=== PATIENT | male | born 1950 | race Two or more races ===

== ENCOUNTER 2021-04-02 09:34 | Emergency (ER) | payer OTHER ==
[~2021-04-02] VITALS: Ht 160 cm; Wt 61.0 kg
--- NOTE | 2021-04-02 10:47 | RAD ---
XR CHEST 1V History: Cough, malaise, Covid person under investigation. Comparison: None. Technique: Portable AP radiograph of the chest. Findings: The lungs are adequately inflated. There are patchy bilateral airspace opacities. No pleural effusion or pneumothorax. Cardiac mediastinal silhouette and pulmonary vasculature are within normal limits. Degenerative changes of the shoulders and spine. Soft tissues are unremarkable. Impression: 1. Patchy bilateral airspace opacities concerning for multifocal infection. Electronically signed by: Edmar Dukes MD (04/02/2021 10:45 AM) [facility]
[2021-04-02 11:30] VITALS: BP 124/78
[2021-04-02] MEDS ORDERED: AZIT250T PO (11:32)
--- NOTE | 2021-04-02 11:33 | PHYS DOC ---
Past Medical History Past Medical History: Diabetes-Type II Past Surgical History: Other Additional Past Surgical Histo: FOOT SX Smoking Status: Never Smoker Alcohol Use: None Drug Use: None General Adult EDM: Chief Complaint: DIARRHEA HPI: HPI: Patient is a 70 year old male presents with report of feeling ill for the past 3 days. Patient reports he has been having a nonproductive cough, nausea, and diarrhea. Denies fever or chills. Reports some generalized malaise. Patient also complains of chronic left hip pain. Patient reports anything he eats "goes right through him ". Denies known sick contacts. Denies known exposure to COVID-19. Patient also reports he has not been vaccinated for COVID-19. Review of Systems: Review of Systems: Constitutional: Denies fever or chills Eyes: Denies redness or eye pain HENT: Denies nasal congestion or sore throat Respiratory: Reports cough; denies shortness of breath Cardiovascular: Denies chest pain or palpitations GI: Denies abdominal pain; reports nausea and diarrhea : Denies dysuria or hematuria Musculoskeletal: Denies back pain or joint pain Integument: Denies rash or skin lesions Neurologic: Denies headache, focal weakness or sensory changes Complete systems were reviewed and found to be within normal limits, except as documented in this note. Heart Score: C/O Chest Pain: N/A Allergies: Allergies: Allergies Coded Allergies Type Severity Reaction Last Updated Verified No Known Drug Allergies 04/02/21 No Physical Exam: PE: Constitutional: Well developed, well nourished, no acute distress, non-toxic appearance HENT: Normocephalic, atraumatic Eyes: Conjunctiva normal, no discharge Neck: Normal range of motion, supple, no meningeal signs Lungs & Thorax: No respiratory distress, equal chest rise and fall Abdomen: Soft, no tenderness, no guarding/rebound tenderness/distention Skin: Warm, dry, no erythema, no rash Extremities: No tenderness, ROM intact, no edema Neurologic: Alert and oriented X 3, no focal deficits noted Psychologic: Affect normal, judgment normal Current Patient Data: Vital Signs: Vital Signs Date Time Temp Pulse Resp B/P (MAP) Pulse Ox O2 Delivery O2 Flow Rate FiO2 04/02/21 09:44 99.8 78 12 127/70 98 Room Air 99.8 EKG: EKG: @0949 NSR at 80bpm, NO ST elevation, QRS 86ms, QT/QTc 352/409ms, LAFB Radiology/Procedures: Radiology/Procedures: PROCEDURE: CHEST AP ONLY XR CHEST 1V History: Cough, malaise, Covid person under investigation. Comparison: None. Technique: Portable AP radiograph of the chest. Findings: The lungs are adequately inflated. There are patchy bilateral airspace opacities. No pleural effusion or pneumothorax. Cardiac mediastinal silhouette and pulmonary vasculature are within normal limits. Degenerative changes of the shoulders and spine. Soft tissues are unremarkable. Impression: 1. Patchy bilateral airspace opacities concerning for multifocal infection. Electronically signed by: Edmar Dukes MD (04/02/2021 10:45 AM) [facility] Course & Med Decision Making: Course & Med Decision Making Pertinent Labs and Imaging studies reviewed. (See chart for details) Patient presents with HPI and physical exam concerning for viral type illness. Patient reports cough, nausea, and diarrhea. Patient has not been vaccinated for COVID-19. COVID-[address] COVID-19 testing pending. Chest x-ray with some signs of atypical pneumonia. Abdomen nonperitoneal. Mucous membranes moist. Prescription for empiric antibiotic provided. Patient advised to hydrate, isolate, and for family members to quarantine. Patient stable for discharge with outpatient follow-up with PCP. Discussed findings and plan with patient, who acknowledges understanding and agreement. COVID-19 CRITERIA: The patient was evaluated during the global COVID-19 pandemic, and that diagnosis was suspected/considered upon their initial presentation. Their evaluation, treatment and testing was consistent with current guidelines for patients who present with complaints or symptoms that may be related to COVID-19. Joao Disclaimer: Joao Disclaimer: This electronic medical record was generated, in whole or in part, using a voice recognition dictation system. Departure Departure Impression: Primary Impression: Viral syndrome Additional Impressions: Diarrhea Qualified Codes: R19.7 - Diarrhea, unspecified Suspected 2019 novel coronavirus infection Pneumonia Qualified Codes: J18.9 - Pneumonia, unspecified organism Disposition: HOME / SELF CARE / HOMELESS Condition: STABLE Patient Instructions: Diarrhea, [id number], Diet for Diarrhea, Adult, Pneumonia, Adult, [id number], Viral Syndrome Additional Instructions: Increase fluid hydration. Definicin Se le realiz la prueba de deteccin del COVID-19 o se le diagnostic dicha enfermedad. Es linda infeccin ocasionada por un nuevo tipo de coronavirus. En la mayora de los casos, el COVID-19 provoca sntomas similares a los del resfriado. En algunas personas, puede ocasionar sntomas ms graves, geronimo problemas respiratorios. No existe un tratamiento para el virus COVID-19. El cuerpo elimina la infeccin con el tiempo. El cuidado personal ayuda a aliviar el malestar. Pasos que debe seguir 1. Cuidados personales Descanse cuando sea necesario. Los hbitos saludables pueden ayudarlo a sentirse mejor. Algunas medidas para lograr cambios incluyen lo siguiente: - Elija alimentos saludables, geronimo frutas y verduras. Nini abundante cantidad de agua oriana todo el da. - Duerma robert por la noche. - Si fuma, intente no hacerlo. Tryon ayudar a mejorar la respiracin. - Evite el alcohol. 2. Mantenga sanos a los dems El virus puede contagiarse a otras personas. Cada vez que estornuda o tose, se liberan gotitas. Las gotitas pueden entrar en la boca, la nariz o los ojos de las personas que se encuentran cerca de usted y ocasionar la infeccin. Para reducir las probabilidades de contagiar el virus COVID-19 a otros, tenga en cuenta lo siguiente: - Qudese en casa el tiempo que el mdico se lo indique. Es posible que deba quedarse en casa hasta que la enfermedad desaparezca. Salga nicamente para recibir atencin mdica o en chani de urgencia. - Evite las reas pblicas, los eventos o el transporte pblico. No reanude las actividades laborales o escolares hasta que el mdico lo autorice. - Llame previamente si necesita asistir a un centro mdico. Avise que es posible que haya contrado COVID-19. Tryon ayudar a que le indiquen adonde debe dirigirse. Luisa pueden pedirle que use linda mscara facial cuando vaya al consultorio. Si llama a los servicios de asistencia mdica de urgencias, avseles que es posible que haya contrado COVID-19. Mientras est en casa: - Evite el contacto directo con otras personas. Mantngase a linda distancia aproximada de 2 metros. Si es posible, pasen la mayor parte del tiempo en rodriguez separadas. - Use linda mscara facial si estar en contacto directo con otras personas, por ejemplo, si compartir linda habitacin o un vehculo. - Pida a alguien que limpie las superficies comunes de la casa. Limpie picaportes, mesadas y lavamanos con limpiadores domsticos todos los bowman. - Al toser o estornudar, cbrase con un pauelo de papel. Despus de usarlo, deschelo de inmediato. Si no tiene un pauelo de papel, tosa o estornude en el pliegue del codo. - Lvese las chapin con frecuencia. Lvese las chapin despus de estornudar o toser. Lvese con agua y jabn oriana, al menos, 20 segundos. Si no dispone de agua y jabn, use un limpiador de chapin a base de alcohol. - No cocine para otros. Evite compartir objetos personales, geronimo tenedores, cucharas o cepillos de dientes. - Mientras est enfermo, evite el contacto directo con las mascotas. No hay indicios de si el virus se transmite a las mascotas. Esta es linda medida de seguridad que debe tenerse en cuenta hasta que se sepa ms acerca de aleena virus. El aislamiento puede ser frustrante. La interaccin social puede ayudar. Mantngase en contacto con amigos y familiares por telfono u otros medios tecnolgicos. Puede interactuar con otras personas en el hogar, vannesa mantenga linda distancia dutta de aproximadamente 2 metros. Seguimiento Las pruebas para confirmar la presencia del COVID-19 pueden demorar algunos bowman. Es posible que deba seguir los pasos mencionados anteriormente hasta que estn los resultados de las pruebas. Lo llamarn del consultorio mdico para saber si fitch habido algn cambio en [place]. Tambin le avisarn cuando pueda volver a estar cerca de otras personas. Problemas a los que debe estar atento Comunquese con el mdico si no se recupera segn lo previsto o si tiene problemas geronimo los siguientes: - Dificultad para respirar - Dolor de pecho - Empeoramiento de los sntomas Si florence que tiene linda urgencia, llame a los servicios de asistencia mdica de urgencias de inmediato. As taken from [facility] Azithromycin (ZITHROMAX) 250 Mg Tablet 1 PKG PO UD for Pneumonia, #6 TAB Take 2 tablets on day 1 and then 1 tablet each day for the next 4 days as directed Prov: CHARLIE MARTINEZ DO 04/02/21 COVID-19 Assessment: COVID-19 Patient Risks: Age 65 or older: No Sign of co-morbidity: Yes Exp to person + for COVID: No Exp to PUI: No Travel from affected area: No Lower respiratory symptoms: Yes Fever: No Other: Yes PPE Use: Full PPE with N95 mask or PAPR: Yes CHARLIE MARTINEZ DO Apr 02, 2021 11:32
--- NOTE | 2021-04-02 20:18 | EKG ---
[facility] [address] [place] [address] Test Date: 2021-04-02 Test Time: 09:49:43 Pat Name: VÍCTOR TORRES Department: Room: Gender: M Variety Lathe Operator: : [id number] Requested By: CHARLIE MARTINEZ Order Number: [id number] Reading MD: Measurements Intervals [place] Rate: 80 P: 39 WV: 152 QRS: -32 QRSD: 86 T: 30 QT: 352 QTc: 409 Interpretive Statements SINUS RHYTHM ABNORMAL LEFT AXIS DEVIATION LOW LIMB LEAD VOLTAGE LEFT ANTERIOR FASCICULAR BLOCK QRS(T) CONTOUR ABNORMALITY CONSIDER ANTEROSEPTAL MYOCARDIAL DAMAGE ABNORMAL ECG RI6.01 No previous ECG available for comparison
--- NOTE | 2021-04-04 10:20 | NUR ---
IP: Informed pt of positive covid test and the need to stay home and quarantine x 10 days. Pt verbalized understanding.
== END 2021-04-02 11:57 | disposition home or self-care (01) ==
LOC: ER 09:34
DX: U07.1 COVID-19 (principal); J18.9 Pneumonia, unspecified organism; B34.9 Viral infection, unspecified; R19.7 Diarrhea, unspecified; E11.9 Type 2 diabetes mellitus without complications; G89.29 Other chronic pain
CPT/HCPCS: 71045; 93005; 99285; U0003; U0005